=== PATIENT | female | born 1990 | race African-American/Black ===

== ENCOUNTER 2016-04-07 14:19 | Emergency (ER) | payer OTHER ==
[~2016-04-07] VITALS: Ht 165.1 cm; Wt 90.7 kg
[~2016-04-07 14:19] MED LIST: FLEXERIL10 MG PO; MOTRIN800 MG PO
--- NOTE | 2016-04-07 15:47 | ED GI/GU/ABDOMINAL COMPLAINT ---
History of Present Illness General Chief Complaint: Nausea, Vomiting, Diarrhea Stated Complaint: NVD Source: patient Exam Limitations: no limitations Vital Signs & Intake/Output Vital Signs & Intake/Output Vital Signs Date Time Temp Pulse Resp B/P Pulse O2 O2 Flow FiO2 Ox Delivery Rate 04/07 1651 98.8 86 16 145/79 97 Room Air 04/07 1427 97.7 71 18 153/92 100 Room Air ED Intake and Output 04/08 0000 04/07 1200 Intake Total 1150 Output Total Balance 1150 Intake, IV 1150 Patient 200 lb Weight Allergies Coded Allergies: NO KNOWN ALLERGIES (02/10/15) Reconcile Medications Ondansetron (Zofran Odt) 4 MG TAB.RAPDIS 1-2 TAB SL TID PRN nausea Pantoprazole Sodium (Protonix) 40 MG TABLET. 1 TAB PO DAILY gastritis Triage Note: 25 Y/O FEMALE BIBA (TO TRIAGE). STATES SHE WAS DIAGNOSED WITH THE FLU SUNDAY AND NOT GIVEN ANY PRESCRIPTIONS. TODAY C/O ABDOMINAL PAIN, COUGH, N/V/D. PER EMS, PT WAS "STICKING HER FINGERS DOWN HER THROAT TO VOMIT. SHE HAS BEEN TO 2 HOSPITALS THIS WEEK FOR SAME". PT AFEBRILE IN TRIAGE. Triage Nurses Notes Reviewed? yes ? n Is pt currently ? No HPI: Patient is a 25-year-old female presents complaining of nausea, vomiting, diarrhea, chest burning and abdominal pain. Symptoms onset on Sunday. Patient reports over 20 episodes of vomiting and diarrhea since onset. Patient has had a small amount of blood in the emesis today. Pain is a burning sensation, currently severe. Patient was seen in an emergency department yesterday, had IV fluids and left prior to obtaining any prescriptions. Positive weakness and chills. Last menstrual period just ended. Patient denies sick contacts (EMELIA OLMSTEAD,DAVIDE) Past History Travel History Traveled to [place] past 21 day No Medical History Any Pertinent Medical History? 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 No (DAVIDE VIRAMONTES) Review of Systems Review of Systems Constitutional: Reports: malaise, weakness. EENTM: Reports: no symptoms. Respiratory: Denies: cough, short of breath. Cardiovascular: Reports: chest pain. GI: Reports: abdominal pain, diarrhea, nausea, vomiting. Genitourinary: Reports: no symptoms. Musculoskeletal: Reports: no symptoms. Skin: Reports: no symptoms. Neurological/Psychological: Reports: no symptoms. Hematologic/Endocrine: Reports: no symptoms. Immunologic/Allergic: Reports: no symptoms. (DAVIDE VIRAMONTES) Physical Exam Physical Exam General Appearance: well developed/nourished, alert, awake, anxious Head: atraumatic, normal appearance Eyes: Bilateral: normal appearance, PERRL, EOMI. Ears, Nose, Throat, Mouth: hearing grossly normal, moist mucous membrane Neck: normal inspection, supple, full range of motion Respiratory: normal breath sounds, no respiratory distress, lungs clear Cardiovascular: regular rate/rhythm Gastrointestinal: normal bowel sounds, soft, EPIGASTRIC TENDERNESS Back: normal inspection, normal range of motion Extremities: normal range of motion Neurologic/Psych: awake, alert, oriented x 3 Skin: intact, normal color, warm/dry Core Measures ACS in differential dx? No Severe Sepsis Present: No Septic Shock Present: No (DAVIDE VIRAMONTES) Progress Differential Diagnosis: appendicitis, biliary colic, cholecystitis, gastritis, hepatitis, ischemic bowel, inflamm bowel dis, kidney stone, ovarian cyst, ovarian torsion, pancreatitis, SBO, UTI/pyelo Plan of Care: Orders Procedure Date/time Status URINE DRUG SCREEN FOR ER ONLY 04/07 1810 Complete URINALYSIS 04/07 1545 Complete LIPASE 04/07 1545 Complete HUMAN BETA HCG SCREEN 04/07 1545 Complete COMPREHENSIVE METABOLIC PANEL 04/07 1545 Complete CBC WITHOUT DIFFERENTIAL 04/07 1545 Complete Laboratory Tests 04/07/16 1805: Urine Opiates Screen < 100.00, Methadone Screen < 40, Barbiturate Screen < 60, Ur Phencyclidine Scrn < 6.00, Amphetamines Screen < 100, U Benzodiazepines Scrn < 85, Urine Cocaine Screen < 50, Urine Cannabis Screen > 80.00 H, Urine Color YEL, Urine Clarity CLEAR, Urine pH 7.5, Ur Specific [place] 1.010, Urine Protein NEG, Urine Ketones NEG, Urine Nitrite NEG, Urine Bilirubin NEG, Urine Urobilinogen 0.2, Ur Leukocyte Esterase NEG, Ur Microscopic EXAM NOT REQUIRED, Urine Hemoglobin NEG, Urine Glucose NEG 04/07/16 1615: Anion Gap 17 H, Estimated GFR > 60, BUN/Creatinine Ratio 8.6, Glucose 122 H, Calcium 10.6 H, Total Bilirubin 0.7, AST 51 H, ALT 55 H, Alkaline Phosphatase 98, Total Protein 9.1 H, Albumin 5.2 H, Globulin 3.9, Albumin/Globulin Ratio 1.3, Lipase 71, Total Beta HCG NEGATIVE 04/07/16 1610: RBC 4.78, MCV 78.0 L, MCH 25.8 L, RDW 14.3, MPV 9.7, Gran % 74.0, Lymphocytes % 15.5 L, Monocytes % 9.9 H, Eosinophils % 0, Basophils % 0.6, Absolute Granulocytes 8.3 H, Absolute Lymphocytes 1.7, Absolute Monocytes 1.1 H, Absolute Eosinophils 0, Absolute Basophils 0.1, PUBS MCHC 33.0 1625: Patient continues with nausea. Reglan ordered Patient reevaluated multiple times. Patient told the nurse that after she provided a urine sample that she would not remain in the department for any further results. Patient's IV was removed. Patient nontoxic appearing, abdominal imaging deferred. (DAVIDE VIRAMONTES) Initial ED EKG: none (DAVIDE VIRAMONTES) Departure Departure Time of Disposition: 1812 Disposition: HOME OR SELF CARE Condition: Stable Clinical Impression Primary Impression: Abdominal pain, vomiting, and diarrhea Referrals: MARILIA TORO (PCP/Family) Additional Instructions: Follow up with your primary care provider next week for further evaluation. Departure Forms: Customer Survey General Discharge Information Prescriptions: Current Visit Scripts Ondansetron (Zofran Odt) 1-2 TAB SL TID PRN nausea #10 TAB Pantoprazole Sodium (Protonix) 1 TAB PO DAILY #14 TAB (DAVIDE VIRAMONTES) PA/COMMUNICATION TECHNICIAN Co-Sign Statement Statement: ED Attending supervision documentation- [] I saw and evaluated the patient. I have also reviewed all the pertinent lab results and diagnostic results. I agree with the findings and the plan of care as documented in the PA's/COMMUNICATION TECHNICIAN's documentation. [x] I have reviewed the ED Record and agree with the PA's/COMMUNICATION TECHNICIAN's documentation. [] Additions or exceptions (if any) to the PAs/COMMUNICATION TECHNICIAN's note and plan are summarized below: [] (VÍCTOR CHAVEZ,SAMIA Mariscal)
[2016-04-07 16:51] VITALS: BP 145/79
[2016-04-07 17:39] LABS: ABSOLUTE BASOPHIL COUNT 0.1 /CUMM (0.0-0.2); ABSOLUTE EOSINOPHIL COUNT 0 /CUMM (0.0-0.7); ABSOLUTE GRANULOCYTE CT 8.3 /CUMM (1.4-6.5); ABSOLUTE LYMPH COUNT 1.7 /CUMM (1.2-3.4); ABSOLUTE MONOCYTE COUNT 1.1 /CUMM (0.10-0.60); BASOPHIL % 0.6 % (0.0-2.0); EOSINOPHIL % 0 % (0-5); HEMATOCRIT 37.3 % (37-47); MEAN CORPUSCULAR HGB 25.8 PG (27.0-31.0); MEAN PLATELET VOLUME 9.7 FL (7.4-10.4); PLATELET COUNT 231 /CUMM (130-400); RBC DISTRIBUTION WIDTH 14.3 % (11.5-14.5); RED BLOOD CELL CT 4.78 /CUMM (4.20-5.40)
[2016-04-07 17:48] LABS: WHITE BLOOD CELL COUNT 11.3 /CUMM (4.8-10.8)
[2016-04-07] MEDS ORDERED: PROTONIX40 M3 PO (18:13)
[2016-04-07] MEDS ORDERED: ZOFRAN ODT4 M1 SL (18:13)
== END 2016-04-07 17:41 ==
LOC: ERH 14:19
PROVIDERS: Physician Assistant
DX: R10.9 Unspecified abdominal pain (principal); R11.2 Nausea with vomiting, unspecified; R19.7 Diarrhea, unspecified; R07.9 Chest pain, unspecified; F17.200 Nicotine dependence, unspecified, uncomplicated
CPT/HCPCS: 80307; 81003; 96361; 96374; 96375; J1200; J1885; J2405; J2550; J2765

== ENCOUNTER 2016-05-10 08:38 | Emergency (ER) | payer OTHER ==
[~2016-05-10] VITALS: Ht 165.1 cm; Wt 90.7 kg
[~2016-05-10 08:38] MED LIST changes: +PROTONIX40 M3 PO; +ZOFRAN ODT4 M1 SL
[2016-05-10 08:43] VITALS: BP 135/84
--- NOTE | 2016-05-10 09:16 | ED ANKLE/FOOT INJURY COMPLAINT ---
History of Present Illness General Chief Complaint: Foot or Ankle Injury Stated Complaint: R ANKLE PAIN Source: patient Exam Limitations: no limitations Vital Signs & Intake/Output Vital Signs & Intake/Output Vital Signs Date Time Temp Pulse Resp B/P Pulse O2 O2 Flow FiO2 Ox Delivery Rate 05/10 0929 97 05/10 0843 98.1 75 18 135/84 99 Room Air Allergies Coded Allergies: NO KNOWN ALLERGIES (02/10/15) Reconcile Medications Pantoprazole Sodium (Protonix) 40 MG TABLET. 1 TAB PO DAILY gastritis Triage Note: 25 Y/O FEMALE C/O PAIN TO L LOWER EXTREMITY AND R ANKLE S/P FALL YESTERDAY. ABLE TO AMBULATE WITH SLIGHT LIMP. DECLINES OFFER OF W/C OR MEDS IN TRIAGE Triage Nurses Notes Reviewed? yes Occurred: just prior to arrival Duration: day(s): (1), constant, continues in ED Timing: recent history Severity: moderate, severe Pain/Injury Location: Right: Ankle. No Modifying Factors: none : No Patient currently breastfeeds: No HPI: 25-year-old female comes into emergency room for evaluation of right ankle pain. Patient reports that yesterday she injured it at work. She twisted it. Sharp pain. Continuous. Nonradiating. Denies any injury anywhere else. associated swelling. (SANDHYA HERRON) Past History Travel History Traveled to [place] past 21 day No Medical History Any Pertinent Medical History? 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 No (SANDHYA HERRON) Review of Systems Review of Systems Constitutional: Reports: no symptoms. EENTM: Reports: no symptoms. Respiratory: Reports: no symptoms. Cardiovascular: Reports: no symptoms. GI: Reports: no symptoms. Genitourinary: Reports: no symptoms. Musculoskeletal: Reports: see HPI. Skin: Reports: no symptoms. Neurological/Psychological: Reports: no symptoms. Hematologic/Endocrine: Reports: no symptoms. Immunologic/Allergic: Reports: no symptoms. All Other Systems: Reviewed and Negative (SANDHYA HERRON) Physical Exam Physical Exam General Appearance: well developed/nourished, mild distress Head: atraumatic Eyes: Bilateral: normal appearance. Ears, Nose, Throat: normal ENT inspection, hearing grossly normal Neck: normal inspection Cardiovascular/Respiratory: no respiratory distress Back: normal inspection Leg/Knee/Thigh Left: normal inspection Ankle Right: soft tissue tenderness, swelling, limited range of motion Foot Right: normal inspection, normal range of motion Neuro/Vascular: normal motor function, normal sensation Tendon: normal tendon function Psychiatric: awake, alert, oriented x 3 Skin: intact, normal color, warm/dry (SANDHYA HERRON) Progress Differential Diagnosis: gout, fracture, dislocation, sprain, contusion Plan of Care: Orders Procedure Date/time Status Durable Medical Equipment 05/10 943 Active Diagnostic Imaging: Viewed by Me: Radiology Read. Discussed w/RAD: Radiology Read. Radiology Impression: SERVICE DATE: 05/10/16 EXAM TYPE: RAD - XRY-ANKLE 3 OR MORE VIEWS R; [id number], RIGHT EXAMINATION: XR TIBIA AND FIBULA, RIGHT XR ANKLE, RIGHT CLINICAL INFORMATION: Pain after twisting injury. Evaluate for fracture. COMPARISON: Right knee radiographs, 02/10/2015 TECHNIQUE: Right leg, AP and lateral views Right ankle, 3 views FINDINGS: Right leg: Tibia and fibula are normal. No focal cortical disruption or soft tissue swelling. Bones have normal alignment at the knee and ankle. Right ankle: The talar dome is well- positioned within the intact ankle mortise. The ankle joint space and tibiofibular syndesmotic space are normal. No ankle joint effusion. IMPRESSION: - Normal right leg. - No acute fracture or malalignment at the right ankle. DICTATED BY: NOE REYES MD DATE/TIME DICTATED:05/10/16931 WELDING MANAGER:GUILLERMINA DATE/TIME TRANSCRIBED:05/10/16931 (SANDHYA HERRON) Departure Departure Disposition: HOME OR SELF CARE Condition: Stable Clinical Impression Primary Impression: Right ankle sprain Referrals: LESLY CHAVEZ,MARILIA RAMIREZ (PCP/Family) Additional Instructions: Ice. Rest. Motrin for pain. Elevation. Follow-up with orthopedic doctor provided if not better in 3-5 days. If symptoms do not improve you'll require further evaluation with possible repeat x-rays as well as evaluation by head orthopedic team physician. Sprains can last anywhere from days to weeks. No high impact running or jumping if you have an ankle sprain or any type of lower extremity sprain. Return to normal activity only after symptoms have resolved. 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 I have also reviewed all the pertinent lab results and diagnostic results. I agree with the findings and the plan of care as documented in the PA's/SPECIAL PROCEDURE TECH's documentation. x I have reviewed the ED Record and agree with the PA's/SPECIAL PROCEDURE TECH's documentation. [] Additions or exceptions (if any) to the PAs/SPECIAL PROCEDURE TECH's note and plan are summarized below: [] (ARNOLD CHAVEZ,MIGUELITO) Procedures Splinting Location: right ankle Manual Alignment Performed: No Splint: ankle stirrup/air cast Splint Applied By: splint applied by me Pre-Proc Neuro Vasc Exam: normal Post-Proc Neuro Vasc Exam: normal (SANDHYA HERRON)
--- NOTE | 2016-05-10 09:38 | RADIOLOGY REPORT ---
EXAMINATION: XR TIBIA AND FIBULA, RIGHT XR ANKLE, RIGHT CLINICAL INFORMATION: Pain after twisting injury. Evaluate for fracture. COMPARISON: Right knee radiographs, 02/10/2015 TECHNIQUE: Right leg, AP and lateral views Right ankle, 3 views FINDINGS: Right leg: Tibia and fibula are normal. No focal cortical disruption or soft tissue swelling. Bones have normal alignment at the knee and ankle. Right ankle: The talar dome is well-positioned within the intact ankle mortise. The ankle joint space and tibiofibular syndesmotic space are normal. No ankle joint effusion. IMPRESSION: - Normal right leg. - No acute fracture or malalignment at the right ankle.
== END 2016-05-10 09:56 ==
LOC: ERH 08:38
DX: S93.401A Sprain of unspecified ligament of right ankle, initial encounter (principal); X50.9XXA Other and unspecified overexertion or strenuous movements or postures, initial encounter
CPT/HCPCS: 73590-RT; 73610-RT